=== PATIENT | male | born 1970 | race Caucasian/White ===

== ENCOUNTER 2025-01-18 14:33 | Outpatient (CLI) | payer BC, SELFPAY ==
--- NOTE | ~2025-01-18 | XR_ITS ---
EXAM/ PROCEDURE: XR tibia fibula RT 2V - 01/18/2025 15:16 CDT HISTORY: 54 years old Male with Dyspnea and right knee pain COMPARISON: None available TECHNIQUE: Two view(s) FINDINGS/ IMPRESSION: There are no fractures or dislocations.Joint space narrowing, subchondral sclerosis, subchondral cyst formation and osteophyte formation, compatible with mild osteoarthritis. Reviewed, dictated and finalized at location A.
--- NOTE | ~2025-01-18 | XR_ITS ---
EXAM/PROCEDURE: XR chest 2V - 01/18/2025 15:16 CDT HISTORY: 54 years old Male with Dyspnea and right knee pain TECHNIQUE: Two view(s) of the chest. COMPARISON: None available. FINDINGS: LUNGS/ PLEURA: No focal consolidation. No appreciable pneumothorax or large pleural effusion. HEART/ MEDIASTINUM: Heart appears normal in size. BONES: No acute osseous abnormality. OTHER: Visualized upper abdomen is unremarkable. IMPRESSION: No acute process. Reviewed, dictated and finalized at location A. IMPRESSION: No acute process.
--- NOTE | ~2025-01-18 | XR_ITS ---
XR knee RT min 4V Ordering provider: Chuy Mendez, History: . Dyspnea and right knee pain . Comparison: None. FINDINGS: BONES: No acute fracture or dislocation. JOINT SPACES: Normal. SOFT TISSUES: Normal. IMPRESSION: No acute osseous abnormality right knee. Reviewed, dictated and finalized at location A.
--- NOTE | 2025-01-18 17:05 | WPDPFTINT ---
PFT Procedure Performed PFT Procedure Performed Plethysmography (Lung Vol) Diffusing Cap (DLCO) Flow Vol Loop Spirometry w/o Bronchodil PFT Interpretation This is a pulmonary function test with spirometry, plethysmography and diffusing capacity. The test was performed and results interpreted in accordance with the 2019 and 2005 ATS/ERS Task Force guidelines respectively using the Global Lung Function Initiative-2012 reference equations. Patient demonstrated good effort and cooperation. Reproducibility criteria were met. The quality of the spirometry maneuver was Grade A. Findings: Spirometry: There is decreased maximal expiratory airflow at all lung volumes. The contour the inspiratory flow tracing is normal. The FVC is 3.00 L, 72% predicted. The FEV1 is 1.92 L, 58% predicted. The FEV1: FVC ratio 64%. Plethysmography: The total lung capacity 6.15 L, 99% predicted. The functional residual capacity is 3.55 L, 113% predicted. The residual volume is 3.01 L, 155% predicted. The residual volume: Total lung capacity ratio is 49%. Diffusing capacity: The diffusing capacity unadjusted for hemoglobin and carboxyhemoglobin is 21.5, 78% predicted. The diffusing capacity adjusted for alveolar volume is 4.88, 106% predicted. Impression: There is a moderately severe obstructive abnormality. The increase in residual volume to total lung volume ratio is consistent with hyperinflation from an obstructive abnormality. The diffusing capacity is normal. There are no prior studies for comparison
== END 2025-01-18 14:34 | disposition home or self-care (01) ==
PROVIDERS: PCP Internal Medicine; Visit Provider Internal Medicine
DX: R06.00 Dyspnea, unspecified (principal); M25.561 Pain in right knee
CPT/HCPCS: 71046; 73564; 73590; 94375; 94726; 94729